=== PATIENT | male | born 1950 | race Caucasian/White ===

== ENCOUNTER → 2020-10-23 | Outpatient (CLI) | payer OTHER ==
[2020-10-23 10:57] LABS: BUN/CREATININE RATIO 15 (0-10)
== END ==
LOC: LAB 09:15
PROVIDERS: Physician Assistant Surgical
DX: E78.5 Hyperlipidemia, unspecified (principal); I49.5 Sick sinus syndrome
CPT/HCPCS: 36415; 80053; 80061